=== PATIENT | female | born 1980 | race Caucasian/White ===

== ENCOUNTER 2017-11-12 16:54 | Emergency (ER) | payer SELFPAY ==
[2017-11-12] MEDS ORDERED: SODIUM CHLOR 0.9% 1000 ML INJ 1,000 ML IV ONE ×2 (17:08→17:15)
[2017-11-12] MEDS ORDERED: SODIUM CHLORIDE 0.9% FLUSH 10 ML FLUSH IVF PRN (17:15)
[2017-11-12 17:19] VITALS: BP 102/60; PULSE 117; RESP 22; TEMP 98.8; O2SAT 98
[2017-11-12 17:22] VITALS: O2SAT 97
[2017-11-12] MEDS ORDERED: QUET1TAB9 PO (17:26)
[2017-11-12] MEDS ORDERED: ZOLO100T PO (17:26)
[2017-11-12] MEDS ORDERED: GABA600T PO (17:26)
--- NOTE | 2017-11-12 17:56 | PD ---
HPI Chief Complaint: Alcohol/Drug Intoxication Time Seen by Provider: 17:08 Travel History International Travel<30 days: No Contact w/Intl Traveler<30days: No Traveled to known affect area: No History of Present Illness HPI Patient is a 37-year-old female presenting to the emergency department via EMS for evaluation possible intoxication. Patient was found at someone's home, outside. The resident of the home acted as if he did not know she was. Patient initially stated she was from [place]. She admits to drinking a pint of gin today. She also reports smoking marijuana. She denies any other drug use. Patient has prescription medications on her including Seroquel and gabapentin. She states that she takes those for sleep. She denies any allergies, she denies any physical complaints at this time. [facility] Past Medical History Depression: Yes Insomnia: Yes Tetanus Vaccination: Unknown ?: Not Tubal Ligation: Yes Past Surgical History Section: Yes Social History Alcohol Use: Yes Tobacco Use: Yes Substance Use: No Allergies-Medications (Allergen,Severity, Reaction): Coded Allergies: No Known Allergies (Unverified , 11/12/17) Reported Meds & Prescriptions Reported Meds & Active Scripts Active Reported Quetiapine (Quetiapine Fumarate) 200 Mg Tab 200 Mg PO HS Zoloft (Sertraline HCl) 100 Mg Tab 100 Mg PO DAILY Gabapentin 600 Mg Tab 600 Mg PO TID Review of Systems Except as stated in HPI: all other systems reviewed are Neg Cardiovascular: Positive: Tachycardia Psychiatric: Positive: Substance Abuse Physical Exam Narrative GENERAL: Well-developed, well-nourished, drowsy but arousable female. Presenting in no acute distress. SKIN: Warm and dry. HEAD: Atraumatic. Normocephalic. EYES: Pupils equal and round. No scleral icterus. No injection or drainage. ENT: No nasal bleeding or discharge. Mucous membranes pink and moist. NECK: Trachea midline. No JVD. CARDIOVASCULAR: Tachycardic RESPIRATORY: No accessory muscle use. Clear to auscultation. Breath sounds equal bilaterally. GASTROINTESTINAL: Abdomen soft, non-tender, nondistended. Hepatic and splenic margins not palpable. MUSCULOSKELETAL: Extremities without clubbing, cyanosis, or edema. No obvious deformities. NEUROLOGICAL: Drowsy but arousable, oriented to self. No obvious cranial nerve deficits. Motor grossly within normal limits. Five out of 5 muscle strength in the arms and legs. Normal speech. PSYCHIATRIC: Appropriate mood and affect; insight and judgment normal. Data Data Last Documented VS Vital Signs Date Time Temp Pulse Resp B/P (MAP) Pulse Ox O2 Delivery O2 Flow Rate FiO2 11/13/17 05:32 11/12/17 20:23 84 16 98 Room Air 11/12/17 17:19 98.8 Orders Orders Complete Blood Count With Diff (11/12/17 17:08) Comprehensive Metabolic Panel (11/12/17 17:08) Iv Access Insert/Monitor (11/12/17 17:08) Ecg Monitoring (11/12/17 17:08) Oximetry (11/12/17 17:08) Sodium Chloride 0.9% Flush (Ns Flush) (11/12/17 17:15) Sodium Chlor 0.9% 1000 Ml Inj (Ns 1000 M (11/12/17 17:08) Alcohol (Ethanol) (11/12/17 17:08) Salicylates (Aspirin) (11/12/17 17:08) Tylenol (Acetaminophen) (11/12/17 17:08) Sodium Chlor 0.9% 1000 Ml Inj (Ns 1000 M (11/12/17 17:15) Ed Discharge Order (11/12/17 19:44) Labs Laboratory Tests Test 11/12/17 17:50 White Blood Count 4.9 TH/MM3 Red Blood Count 3.66 MIL/MM3 Hemoglobin 12.5 GM/DL Hematocrit 34.8 % Mean Corpuscular Volume 94.9 FL Mean Corpuscular Hemoglobin 34.0 PG Mean Corpuscular Hemoglobin Concent 35.9 % Red Cell Distribution Width 15.9 % Platelet Count 301 TH/MM3 Mean Platelet Volume 7.6 FL Neutrophils (%) (Auto) 48.7 % Lymphocytes (%) (Auto) 39.7 % Monocytes (%) (Auto) 7.2 % Eosinophils (%) (Auto) 3.6 % Basophils (%) (Auto) 0.8 % Neutrophils # (Auto) 2.4 TH/MM3 Lymphocytes # (Auto) 1.9 TH/MM3 Monocytes # (Auto) 0.4 TH/MM3 Eosinophils # (Auto) 0.2 TH/MM3 Basophils # (Auto) 0.0 TH/MM3 CBC Comment DIFF FINAL Differential Comment Blood Urea Nitrogen 8 MG/DL Creatinine 0.66 MG/DL Random Glucose 83 MG/DL Total Protein 7.1 GM/DL Albumin 3.6 GM/DL Calcium Level 8.2 MG/DL Alkaline Phosphatase 103 U/L Aspartate Amino Transf (AST/SGOT) 29 U/L Alanine Aminotransferase (ALT/SGPT) 28 U/L Total Bilirubin 0.2 MG/DL Sodium Level 144 MEQ/L Potassium Level 3.3 MEQ/L Chloride Level 108 MEQ/L Carbon Dioxide Level 24.5 MEQ/L Anion Gap 12 MEQ/L Estimat Glomerular Filtration Rate 101 ML/MIN Salicylates Level 4.5 MG/DL Acetaminophen Level LESS THAN 2.0 MCG/ML Ethyl Alcohol Level 369 MG/DL MDM Medical Decision Making Medical Screen Exam Complete: Yes Emergency Medical Condition: Yes Interpretation(s) Vital Signs Date Time Temp Pulse Resp B/P (MAP) Pulse Ox O2 Delivery O2 Flow Rate FiO2 11/12/17 17:22 97 Room Air 11/12/17 17:19 98.8 117 22 102/60 (74) 98 Differential Diagnosis Substance abuse versus metabolic abnormality versus intoxication versus other Narrative Course Patient is a 37-year-old female that presented to emergency department for evaluation after being found intoxicated. Patient is mildly tachycardic on arrival, she is drowsy but arousable. Labs ordered and pending. 1800 patient is observed getting out of bed, she pulled out her IV line. Patient continues to appear intoxicated. CBC with no acute findings. Chemistry, alcohol level is pending. Care of patient transferred to Davey JUAREZ, he will determine patient's disposition. Nery Vogt Nov 12, 2017 17:56
[2017-11-12 18:29] LABS: AUTOMATED NEUTROPHIL # 2.4 TH/MM3 (1.8-7.7); BASOPHIL % 0.8 % (0.0-2.0); EOSINOPHIL # 0.2 TH/MM3 (0-0.4); EOSINOPHIL % 3.6 % (0.0-4.0); HEMATOCRIT 34.8 % (35.0-46.0); HEMOGLOBIN 12.5 GM/DL (11.6-15.3); LYMPH % 39.7 % (9.0-44.0); LYMPHOCYTE # 1.9 TH/MM3 (1.0-4.8); MEAN CELL VOLUME 94.9 FL (80.0-100.0); MEAN CORPUSCULAR HGB CONC 35.9 % (32.0-36.0); MEAN PLATELET VOLUME 7.6 FL (7.0-11.0); MONO % 7.2 % (0.0-8.0); MONOCYTE # 0.4 TH/MM3 (0-0.9); NEUT % 48.7 % (16.0-70.0); PLATELET COUNT 301 TH/MM3 (150-450); RED BLOOD COUNT 3.66 MIL/MM3 (4.00-5.30); RED CELL DISTRIBUTION WIDTH 15.9 % (11.6-17.2); WHITE BLOOD COUNT 4.9 TH/MM3 (4.0-11.0)
[2017-11-12 19:11] LABS: ALBUMIN 3.6 GM/DL (3.4-5.0); ALKALINE PHOSPHATASE 103 U/L (45-117); ALT (GPT) 28 U/L (10-53); AST (GOT) 29 U/L (15-37); BICARBONATE 24.5 MEQ/L (21.0-32.0); BLOOD UREA NITROGEN 8 MG/DL (7-18); CALCIUM 8.2 MG/DL (8.5-10.1); CHLORIDE 108 MEQ/L (98-107); CREATININE 0.66 MG/DL (0.50-1.00); GLOMERULAR FILTRATION RATE 101 ML/MIN (>89); GLUCOSE,RANDOM 83 MG/DL (74-106); SODIUM (NA) 144 MEQ/L (136-145); TOTAL BILIRUBIN ADULT 0.2 MG/DL (0.2-1.0); TOTAL PROTEIN 7.1 GM/DL (6.4-8.2)
[2017-11-12 19:14] LABS: ACETAMINOPHEN LESS THAN 2.0 MCG/ML (10.0-30.0)
--- NOTE | 2017-11-12 19:46 | PD ---
Physical Exam Date Seen by Provider: Nov 12, 2017 Time Seen by Provider: 19:44 Data Data Last Documented VS Vital Signs Date Time Temp Pulse Resp B/P (MAP) Pulse Ox O2 Delivery O2 Flow Rate FiO2 11/12/17 17:22 97 Room Air 11/12/17 17:19 98.8 117 22 102/60 (74) Orders Orders Complete Blood Count With Diff (11/12/17 17:08) Comprehensive Metabolic Panel (11/12/17 17:08) Iv Access Insert/Monitor (11/12/17 17:08) Ecg Monitoring (11/12/17 17:08) Oximetry (11/12/17 17:08) Sodium Chloride 0.9% Flush (Ns Flush) (11/12/17 17:15) Sodium Chlor 0.9% 1000 Ml Inj (Ns 1000 M (11/12/17 17:08) Alcohol (Ethanol) (11/12/17 17:08) Salicylates (Aspirin) (11/12/17 17:08) Tylenol (Acetaminophen) (11/12/17 17:08) Sodium Chlor 0.9% 1000 Ml Inj (Ns 1000 M (11/12/17 17:15) Ed Discharge Order (11/12/17 19:44) Labs Laboratory Tests Test 11/12/17 17:50 White Blood Count 4.9 TH/MM3 Red Blood Count 3.66 MIL/MM3 Hemoglobin 12.5 GM/DL Hematocrit 34.8 % Mean Corpuscular Volume 94.9 FL Mean Corpuscular Hemoglobin 34.0 PG Mean Corpuscular Hemoglobin Concent 35.9 % Red Cell Distribution Width 15.9 % Platelet Count 301 TH/MM3 Mean Platelet Volume 7.6 FL Neutrophils (%) (Auto) 48.7 % Lymphocytes (%) (Auto) 39.7 % Monocytes (%) (Auto) 7.2 % Eosinophils (%) (Auto) 3.6 % Basophils (%) (Auto) 0.8 % Neutrophils # (Auto) 2.4 TH/MM3 Lymphocytes # (Auto) 1.9 TH/MM3 Monocytes # (Auto) 0.4 TH/MM3 Eosinophils # (Auto) 0.2 TH/MM3 Basophils # (Auto) 0.0 TH/MM3 CBC Comment DIFF FINAL Differential Comment Blood Urea Nitrogen 8 MG/DL Creatinine 0.66 MG/DL Random Glucose 83 MG/DL Total Protein 7.1 GM/DL Albumin 3.6 GM/DL Calcium Level 8.2 MG/DL Alkaline Phosphatase 103 U/L Aspartate Amino Transf (AST/SGOT) 29 U/L Alanine Aminotransferase (ALT/SGPT) 28 U/L Total Bilirubin 0.2 MG/DL Sodium Level 144 MEQ/L Potassium Level 3.3 MEQ/L Chloride Level 108 MEQ/L Carbon Dioxide Level 24.5 MEQ/L Anion Gap 12 MEQ/L Estimat Glomerular Filtration Rate 101 ML/MIN Salicylates Level 4.5 MG/DL Acetaminophen Level LESS THAN 2.0 MCG/ML Ethyl Alcohol Level 369 MG/DL [facility] Medical Record Reviewed: Yes Supervised Visit with HIRO: No Interpretation(s) Laboratory Tests Test 11/12/17 17:50 White Blood Count 4.9 TH/MM3 Red Blood Count 3.66 MIL/MM3 Hemoglobin 12.5 GM/DL Hematocrit 34.8 % Mean Corpuscular Volume 94.9 FL Mean Corpuscular Hemoglobin 34.0 PG Mean Corpuscular Hemoglobin Concent 35.9 % Red Cell Distribution Width 15.9 % Platelet Count 301 TH/MM3 Mean Platelet Volume 7.6 FL Neutrophils (%) (Auto) 48.7 % Lymphocytes (%) (Auto) 39.7 % Monocytes (%) (Auto) 7.2 % Eosinophils (%) (Auto) 3.6 % Basophils (%) (Auto) 0.8 % Neutrophils # (Auto) 2.4 TH/MM3 Lymphocytes # (Auto) 1.9 TH/MM3 Monocytes # (Auto) 0.4 TH/MM3 Eosinophils # (Auto) 0.2 TH/MM3 Basophils # (Auto) 0.0 TH/MM3 CBC Comment DIFF FINAL Differential Comment Blood Urea Nitrogen 8 MG/DL Creatinine 0.66 MG/DL Random Glucose 83 MG/DL Total Protein 7.1 GM/DL Albumin 3.6 GM/DL Calcium Level 8.2 MG/DL Alkaline Phosphatase 103 U/L Aspartate Amino Transf (AST/SGOT) 29 U/L Alanine Aminotransferase (ALT/SGPT) 28 U/L Total Bilirubin 0.2 MG/DL Sodium Level 144 MEQ/L Potassium Level 3.3 MEQ/L Chloride Level 108 MEQ/L Carbon Dioxide Level 24.5 MEQ/L Anion Gap 12 MEQ/L Estimat Glomerular Filtration Rate 101 ML/MIN Salicylates Level 4.5 MG/DL Acetaminophen Level LESS THAN 2.0 MCG/ML Ethyl Alcohol Level 369 MG/DL Differential Diagnosis Differential diagnoses: Alcohol intoxication, substance abuse, electrolyte abnormality, malingering Narrative Course The patient here is intoxicated. She is alert and oriented. Patient states that she can obtain a sober person to come pick her up. She like to use the phone. The patient is medically stable for discharge to a sober individual. Once this individual is here in the ER she will be considered medically cleared and discharged. This is alcohol intoxication Diagnosis Primary Impression: Alcohol intoxication Patient Instructions: General Instructions Additional Instruction: Rest. Increase fluids. Avoid alcohol. Avoid illegal substances. Follow-up with [facility] for detox. Do not operate a car or any heavy machinery under the influence of alcohol or drugs. Follow-up with a medical doctor this week. Return to the ER for emergencies Med/Other Pt SpecificInfo: No Meds Exist/No RX given Disposition: 01 DISCHARGE HOME Condition: Stable Davey Hadley Nov 12, 2017 19:46
[2017-11-12 20:23] VITALS: BP 121/75; PULSE 84; RESP 16; O2SAT 98
== END 2017-11-13 05:34 | disposition home or self-care (01) ==
LOC: NEPD 16:54
DX: F10.129 Alcohol abuse with intoxication, unspecified (principal); R00.0 Tachycardia, unspecified; F12.90 Cannabis use, unspecified, uncomplicated; Y90.8 Blood alcohol level of 240 mg/100 ml or more; F32.9 Major depressive disorder, single episode, unspecified; G47.00 Insomnia, unspecified; Z72.0 Tobacco use; Z79.899 Other long term (current) drug therapy
CPT/HCPCS: 80053; 80307; 85025; 96360; 96361; 99284; J7030